=== PATIENT | male | born 1975 | race Hispanic/Latino ===

== ENCOUNTER → 2018-02-14 | Outpatient (CLI) | payer OTHER ==
--- NOTE | 2018-02-14 23:43 | Magnetic Resonance Report ---
FINAL REPORT PROCEDURE: MR LE JOINT RT WO CON TECHNIQUE: Magnetic resonance imaging of the RIGHT knee was performed using standard pulse sequences. CPT 42518 HISTORY: TEAR OF THE RIGHT KNEE MENISCUS COMPARISON: No prior studies are available for comparison. FINDINGS: Bony alignment and bone marrow signal are within normal limits. An acute fracture is not identified. Minimal degree joint effusion is noted. Articular cartilage is well maintained. Anterior and posterior cruciate ligaments and the medial and lateral collateral ligaments are intact. Lateral meniscus demonstrates normal size and signal characteristics. Posterior horn of the medial meniscus demonstrates a a linear signal abnormality which is reaching the inferior articular surface. Soft tissues are unremarkable. IMPRESSION: Findings are consistent with tear involving the posterior horn medial meniscus reaching the inferior articular surface. Minimal joint effusion.
== END | disposition home or self-care (01) ==
LOC: MRI 13:22
PROVIDERS: ATTEND Internal Medicine
DX: M25.461 Effusion, right knee (principal)
CPT/HCPCS: 73721